=== PATIENT | male | born 1935 | race African-American/Black ===

== ENCOUNTER 2017-11-04 08:11 | Emergency (ER) | payer BC, MEDICARE ==
[~2017-11-04] VITALS: Ht 162.6 cm; Wt 62.7 kg
[2017-11-04 08:25] VITALS: Ht 162.6 cm; Wt 62.7 kg
[2017-11-04] MEDS ORDERED: TORADOL10 MG PO (10:28)
[2017-11-04 11:00] VITALS: BP 132/70
== END 2017-11-04 11:01 | disposition home or self-care (01) ==
LOC: D.ER 08:11
DX: M13.142 Monoarthritis, not elsewhere classified, left hand (principal)

== ENCOUNTER 2018-07-27 14:29 | Observation (INO) | payer BC ==
[~2018-07-27] VITALS: Ht 162.6 cm; Wt 64.0 kg
--- NOTE | ~2018-07-27 | HEMODYNAMI ---
PATIENT:GANESH BHATT MEDICAL RECORD: [id number] : 33 LOCATION:[facility] D.2104 ADMISSION DATE: 07/27/18 Generatedon:07/30/201810:38 Patient name: GANESH BHATT Patient #: [id number] SSN: : 1935 Date of study: 07/30/2018 Page: Of Hemodynamic Procedure Report Patient Data Patient Demographics Procedure consent was obtained First Name: GANESH Gender: Male Last Name: MILLER : 1935 Patient #: [id number] Age: 82 year(s) Race: Black Additional ID: [id number] Contact details [address]: [address] [place] [address] State: [place] City: [place] Zip code: [address] Admission Admission Data Admission Date: 07/27/2018 Admission Time: 16:41 Room #: D.2104 Procedure Procedure Types Cath Procedure Diagnostic Procedure LHC LHC w/Coronaries FFR/IVUS FFR Initial Intra-Coronary IVUS Initial Sedation Charges Moderate Sedation up to 15 minutes PCI Procedure Coronary Stent Coronary Stent Initial Procedure Description Procedure Date Procedure Date: 07/30/2018 Procedure Start Time: 10:06 Procedure End Time: 10:35 Procedure Staff Name Function John Bowens MD Performing Physician Heike Rogers RT Monitor Candice Crandall RT Scrub Anna Serra RN Nurse Procedure Data Cath Procedure Fluoroscopy Diagnostic fluoroscopy Total fluoroscopy Time: 7 time: 7 min min Diagnostic fluoroscopy Total fluoroscopy dose: dose: 1018 mGy 1018 mGy Contrast Material Contrast Material Type Amount (ml) Isovue 370 119 Entry Location Entry Primary Successful Side Size Upsize Upsize Entry Closure Levin ccessful Closure Location (Fr) 1 (Fr) 2 (Fr) Remarks Device Remarks Radial Right 6 Fr Mechanical artery Short Compression Femoral Right 5 Fr 6 Fr Exoseal artery Short Estimated blood loss: 5 ml Diagnostic catheters Device Type Used For End Catheter Placement DIAGNOSTIC [place] 110cm 5 Multi-vessel Fr catheter ([id number]) Angiography Procedure Complications No complications Procedure Medications Medication Administration Route Dosage 0.9% NaCl I.V. 100 ml/hr Oxygen etCO2 Nasal cannula 2 l/min Lidocaine 2% added to field 20 Heparin Flush Bag added to field 2 bags (1000units/500ml NS) Radial Cocktail added to field 1 syringe (Verapamil 2mg/Nitro 400mcg/Heparin 1500units) Versed I.V. 2 mg Fentanyl I.V. 50 mcg Fentanyl I.V. 50 mcg Heparin Bolus I.V. 4000 units Plavix P.O. 75 mg Hemodynamics Rest Heart Rate: 79 (bpm) Pressure Samples Time Site Value (mmHg) Purpose Heart Use Rate(bpm) 10:11 LV 93/-5,11 Snapshot 93 Snapshots Pre Cath Intra NCS Post Cath Vital Signs Time Heart Resp SPO2 etCO2 NIBP (mmHg) Rhythm Pain Sedation Rate (ipm) (%) (mmHg) Status Level (bpm) 9:52:06 95 13 100 18.7 202/129(166) NSR 0 (11) 10(A) , No pain 9:56:30 91 16 99 18 194/108(163) NSR 0 (11) 10(A) , No pain 10:00:52 87 16 100 33 176/99(141) NSR 0 (11) 10(A) , No pain 10:05:10 85 11 100 32.7 176/104(143) NSR 0 (11) 10(A) , No pain 10:09:28 93 11 99 40.2 149/89(124) NSR 0 (11) 9(A) , No pain 10:13:38 85 15 100 38.3 130/89(109) NSR 0 (11) 9(A) , No pain 10:18:41 91 18 100 26.3 158/93(111) NSR 0 (11) 9(A) , No pain 10:22:55 82 17 100 16.5 148/86(107) NSR 0 (11) 9(A) , No pain 10:27:03 81 10 100 33 160/91(118) NSR 0 (11) 9(A) , No pain 10:31:17 80 10 100 33 161/94(142) NSR 0 (11) 10(A) , No pain 10:35:29 79 13 100 0 163/106(134) NSR 0 (11) 10(A) , No pain Medications Time Medication Route Dose Verified Delivered Reason Not es Effectiveness by by 9:56:08 0.9% NaCl I.V. 100 John Anna used for ml/hr Kwan Serra business writer 9:56:14 Oxygen etCO2 2 l/min John Anna used for Nasal Kwan Serra procedure cannula RN 9:56:19 Lidocaine 2% added 20ml Johnraman Rizvirey for local to vial Kwan Bowens MD anesthetic field 9:56:25 Heparin Flush added 2 bags Johnraman Rizvirey used for Bag to Kwan Bowens MD procedure (1000units/500ml field NS) 9:56:31 Radial Cocktail added 1 Johnraman Rizvirey used for (Verapamil to syringe Kwan Bowens MD procedure 2mg/Nitro field 400mcg/Heparin 1500units) 10:00:06 Versed I.V. 2 mg John Rizvirey for sedation Kwan Bowens MD 10:00:16 Fentanyl I.V. 50 mcg John Anna for sedation Kwan Serra RN 10:06:34 Fentanyl I.V. 50 mcg John Anna for sedation Kwan Serra RN 10:17:34 Heparin Bolus I.V. 4000 John Anna for ra ified units Kwan Serra anticoagulation with Dr. CHANA Bowens 10:18:14 Plavix P.O. 75 mg John Gallagheryla for to be Kwan Serra antiplatelet given RN therapy after procedure when pt awake Procedure Log Time Note 9:30:30 Heike Rogers RT(R) sent for patient. Start room use. 9:49:10 Diagnostic Cath Status : Elective 9:49:31 Time tracking: Regular hours (M-F 7:00 - 5:00) 9:49:37 Plan of Care:Hemodynamics will remain stable., Cardiac rhythm will remain stable., Comfort level will be maintained., Respiratory function will remain adequate., Patient/ family verbilizes understanding of procedure., Procedure tolerated without complication., Recovers from procedure without complications.. 9:49:49 Patient received from Med II to CCL 2 Alert and oriented. Tansferred to table in Supine position. 9:49:50 Warm blankets applied, and vita hugger turned on for patient comfort. 9:49:51 Correct patient and procedure confirmed by team. 9:49:52 Signed procedure consent form obtained from patient. 9:49:53 ECG and BP/O2 sat monitors applied to patient. 9:49:54 Vital chart was started 9:49:55 Baseline sample Acquired. 9:49:59 Rhythm: sinus rhythm 9:50:00 Full Disclosure recording started 9:50:03 H&P Date Dictated: 07/30/2018 New H&P dictated by physician.. 9:50:04 Pre-procedure instructions explained to patient. 9:50:04 Pre-op teaching completed and patient verbalized understanding. 9:50:06 Family in patients room. 9:50:07 Patient NPO since Midnight. 9:50:09 Is the patient allergic to Iodine/contrast media? No. 9:50:10 Was the patient premedicated? No 9:56:08 0.9% NaCl 100 ml/hr I.V. was administered by Anna Serra RN; used for procedure; 9:56:14 Oxygen 2 l/min etCO2 Nasal cannula was administered by Anna Serra RN; used for procedure; 9:56:19 Lidocaine 2% 20ml vial added to field was administered by John Bowens MD; for local anesthetic; 9:56:25 Heparin Flush Bag (1000units/500ml NS) 2 bags added to field was administered by John Bowens MD; used for procedure; 9:56:31 Radial Cocktail (Verapamil 2mg/Nitro 400mcg/Heparin 1500units) 1 syringe added to field was administered by John Bowens MD; used for procedure; 9:59:00 Is patient on blood thinner?Yes 9:59:03 ACC The patient was administered the following blood thiners within the last 24 hours: ACCPlavix 9:59:05 Patient diabetic? No. 9:59:08 Previous problem with sedation/anesthesia? No ? 9:59:13 Snore? Yes 9:59:14 Sleep apnea? No 9:59:15 Deviated septum? No 9:59:16 Opens mouth fully? Yes 9:59:17 Sticks out tongue? Yes 9:59:22 Airway obstruction? No ? 9:59:28 Dentures? Yes implant 9:59:32 Pre procedure: right dorsailis pedis pulse 2+ Normal; easily identifiable; not easily obliterated 9:59:34 Pre procedure: left dorsailis pedis pulse 2+ Normal; easily identifiable; not easily obliterated 9:59:36 Patient pain scale 0/10 ?. 9:59:40 IV patent on arrival in left forearm with 0.9% NaCl at O. 9:59:42 Lab results completed and on chart. 9:59:47 Right Radial & Right Groin area was prepped with chlora-prep and draped in sterile fashion 9:59:48 Alarms reviewed by R. N. 9:59:48 Sharps counted by scrub and verified by R.N. 9:59:50 Physician arrived 9:59:50 --------ALL STOP TIME OUT------ 9:59:50 Final Timeout: patient, procedure, and site verified with staff and physician. All members of the team are in agreement. 9:59:52 Right Radial & Right Groin site verified by team. 9:59:56 Maximum allowable Isovue 370 dose 300ml. Physician notified. (300ml for normal creatinines. For patients with creatinine of 1.7 or higher multiply weight(kg) x 5 divided by creatinine.) 10:00:00 Fire Safety Assessment: A--An alcohol-based skin anteseptic being used preoperatively., C--Open oxygen or nitrous oxide is being used., D--An ESU, laser, or fiber-optic light is being used. 10:00:03 Physical assessment completed. ASA score P 2 - A patient with mild systemic disease as per John Bowens MD. 10:00:06 Versed 2 mg I.V. was administered by John Bowens MD; for sedation; 10:00:06 Sedation plan: IV Moderate Sedation Medication:Versed, Fentanyl 10:00:10 Use device set Radial Dx or PCI 10:00:12 ACIST Syringe (19485) opened to sterile field. 10:00:12 Medline Cath Pack ([id number]) opened to sterile field. 10:00:13 Bag Decanter (2002S) opened to sterile field. 10:00:13 DIAGNOSTIC WIRE .035 260cm J wire (555458) opened to sterile field. 10:00:14 ACIST Hand Control (00763) opened to sterile field. 10:00:14 ACIST Manifold (79679) opened to sterile field. 10:00:15 Tegaderm 4 x 4 (1626W) opened to sterile field. 10:00:15 MBrace Wrist Support (844064945) opened to sterile field. 10:00:16 Fentanyl 50 mcg I.V. was administered by Anna Serra RN; for sedation; 10:00:16 SHEATH 6FR Slender (60-6269) opened to sterile field. 10:06:34 Fentanyl 50 mcg I.V. was administered by Anna Serra RN; for sedation; 10:06:54 Procedure started. 10:06:59 Local anesthetic to right radial artery with Lidocaine 2% by John Bowens MD.INITIAL ACCESS ONLY 10:07:55 A 6 Fr Short sheath was inserted into the Right Radial artery 10:08:01 A DIAGNOSTIC [place] 110cm 5 Fr catheter (633941) was advanced over the wire and used for Multi-vessel Angiography. 10:09:46 Catheter removed. unable to cannulate vessel. 10:09:55 Local anesthetic to right femoral artery with Lidocaine 2% by John Bowens MD.ADDITIONAL ACCESS 10:10:08 SHEATH 5FR [place] (FRD103) opened to sterile field. 10:10:09 DIAGNOSTIC Multipack 5Fr catheter set (CY9108) opened to sterile field. 10:10:33 A 5 Fr sheath was inserted into the Right Femoral artery 10:11:15 5 Fr pigtail guide catheter was inserted over the wire 10:11:31 LV hemodynamics recorded. 10:11:32 LV gram done using GONZALEZ 10:11:35 Injector settings: Ml/sec: 5, Volume: 15, 10:11:41 EF : 60 % 10:12:00 Catheter removed. 10:12:16 LCA angiography performed. 10:12:18 Injector settings: Ml/sec: 3, Volume: 6, 10:14:28 Catheter removed. 10:14:44 5 Fr 3drc guide catheter was inserted over the wire 10:14:55 RCA angiography performed. 10:14:57 Injector settings: Ml/sec: 3, Volume: 6, 10:15:51 Catheter removed. 10:15:52 Proceeding to intervention. 10:16:34 SHEATH 6FR [place] (YTH425) opened to sterile field. 10:16:35 GUIDE 6FR XB 3.5 catheter ([id number]) opened to sterile field. 10:16:36 [place] Verrata Plus pressure wire (68736L) opened to sterile field. 10:16:36 INFLATOR Merit BasixCompak (HL7622) opened to sterile field. 10:16:56 Sheath upsized to a 6 Fr Short. 10:17:08 6 Fr xb 3.5 guide catheter was inserted over the wire 10:17:34 Heparin Bolus 4000 units I.V. was administered by Anna Serra RN; for anticoagulation; verified with Dr. Bowens 10:18:14 Plavix 75 mg P.O. was administered by Anna Serra RN; for antiplatelet therapy; to be given after procedure when pt awake 10:18:29 CHOICE PT Extra Support 182cm wire ([id number]) opened to sterile field. 10:18:39 [facility] ept wire advanced. 10:20:42 Wire advanced across lesion. 10:21:59 Place stent Inflation Number: 1 A ROBERTH RX 4.0 x 15 stent ([id number]) was prepped and advanced across the Prox CX. The stent was deployed at 11 DAVIDE for 0:10 (min:sec). 10:22:21 Inflation number: 2 The stent balloon was then re-inflated across the Prox CX to 13 DAVIDE for 0:10 (min:sec). 10:22:56 Stent catheter was removed intact over wire. 10:22:56 Wire removed. 10:22:58 Guide catheter removed. 10:23:08 GUIDE 6FR EBU 3.0 catheter ([id number]) opened to sterile field. 10:23:17 6 Fr ebu 3 guide catheter was inserted over the wire 10:23:40 FFR/IFR wire advanced. 10:26:45 lad lesion measured at 0.97 with IFR 10:27:08 [place]ag[place] IVUS Catheter (59978S) opened to sterile field. 10:27:56 IFR wire removed; proceding to IVUS 10:28:31 IVUS catheter advanced over wire. 10:28:33 IVUS pass to LAD lesion performed. 10:30:19 IVUS catheter removed over wire. 10:30:42 Wire removed. 10:30:42 Guide catheter removed. 10:30:48 EXOSEAL 6Fr (EX600) opened to sterile field. 10:31:04 Sheath removed intact; hemostasis achieved with Exoseal to the Right Femoral artery. 10:31:16 Sheath removed intact; hemostasis achieved with Mechanical Compression to the Right Radial artery. 10::31 Procedure ended.(Physican Out) 10:32:41 Fluoroscopy time 07.00 minutes. 10:32:45 Fluoroscopy dose: 1018 mGy 10:32:45 Flurop Dose total: 1018 10:34:05 Contrast amount:Isovue 370 119ml. 10:34:06 Sharps counted by scrub and verified by R.N. 10:34:09 TR band inflated with 10cc of air. 10:34:10 Insertion/operative site no bleeding no hematoma. 10:34:19 Post right femoral artery:stable 10:34:21 Post Procedure Pulses reassessed and unchanged 10:34:25 Post procedure rhythm: unchanged. 10:34:28 Estimated blood loss: 5 ml 10:34:29 Post procedure instruction explained to patient.Patient verbalizes understanding. 10:34:30 Patient needs reinforcement of post procedure teaching. 10:35:14 Procedure type changed to Cath procedure, Diagnostic procedure, LHC, LHC w/Coronaries, FFR/IVUS, FFR Initial, Intra-Coronary IVUS Initial, Sedation Charges, Moderate Sedation up to 15 minutes, PCI procedure, Coronary Stent, Coronary Stent Initial 10:35:15 Procedure and supply charges have been captured, reviewed, submitted and are correct. 10:35:20 Procedure Complication : No complications 10:35:24 Vital chart was stopped 10:35:24 See physician's report for complete and final results. 10:35:28 Report given to [facility]. 10:35:31 Patient transfered to [facility] with Stretcher. 10:35:33 Procedure ended. 10:35:33 Full Disclosure recording stopped 10:35:46 ACC-PCI Only Patient was given prescriptions, or instructed by John Bowens MD to start/continue the following medications upon discharge: Plavix 10:35:47 End room use (Document Last) Intervention Summary Intervention Notes Time ActionType Lesion and Equipment Used Action# Pressure Duration Attributes 10:21:59 Place stent Prox CX ROBERTH RX 4.0 x 1 11 00:10 15 stent ([id number]) 10:22:21 Reinflate Prox CX ROBERTH RX 4.0 x 2 13 00:10 stent 15 stent balloon ([id number]) Device Usage Item Name Manufacture Quantity Catalog Number Hospital Part Current Minimal Lot# / Charge Number Stock Stock Serial# Code ACIST Syringe Acist 1 81690 843805 114335 [id number] 20 (83678) Medical Systems Inc Medline Cath Medline 1 [id number] 653381 91411 887505 5 Pack ([id number]) Bag Decanter Microtek 1 2001S 133492 32096 685318 5 (2001S) Medical Inc. DIAGNOSTIC [place] 1 339928 491906 291245 779225 30 WIRE .035 260cm J wire (865883) ACIST Hand Acist 1 61119 836202 555869 405291 5 Control Medical (74450) Systems Inc ACIST Manifold Acist 1 56934 648199 149098 178855 5 (93206) Medical Systems Inc Tegaderm 4 x 4 3M 1 1626W 907290 933450 704693 5 (1626W) MBrace Wrist Advanced 1 140-0250-00 886866 03781 921537 5 Support Vascular (339442687) Dynamics SHEATH 6FR Terumo 1 [id number] 647508 761551 723052 5 Slender (80-1060) DIAGNOSTIC Terumo 1 40-5013 187797 997428 913604 5 [place] 110cm 5 Fr catheter (893262) SHEATH 5FR Terumo 1 OUH020 393875 883003 909664 5 [place] (MRU016) DIAGNOSTIC Cardinal 1 DF6912 160518 74712 767019 30 Multipack 5Fr Health catheter set (MA6901) SHEATH 6FR Terumo 1 AHQ970 341485 340104 975899 40 [place] (UOT078) GUIDE 6FR XB Cardinal 1 04447276 314318 199831 552588 2 3.5 catheter Health (82511498) [place] 1 36925J 732389 205911360 293192 5 Verrata Plus pressure wire (36378P) INFLATOR Merit Merit 1 UD1800 659081 866186 529130 15 [facility]ware[facility] HospitalM[facility] Bell Medical (OJ3315) CHOICE PT [place] 1 [id number] 693493 703048 236945 5 Extra Support Scientific 182cm wire ([id number]) ROBERTH RX 4.0 x Medtronic 1 [id number] 775396 6980335 224504 5 [id number] 15 stent ([id number]) GUIDE 6FR EBU Medtronic 1 [id number] 078314 78003 114908 0 3.0 catheter ([id number]) [place] 1 78965Q 564358 233497 548747 8 [place] IVUS Catheter (95449X) EXOSEAL 6Fr Cardinal 1 EX600 264964 951247 238503 10 (EX600) Health Signature Audit [place] Stage Time Signature Unsigned Intra-Procedure 07/30/2018 Heike Rogers 10:37:55 AM RT(R) Signatures Monitor : Heike Rogers RT Signature : Date : Time : [address] [place] [address]
--- NOTE | ~2018-07-27 | CN ---
PATIENT NAME:GANESH SOLIS MEDICAL RECORD: [id number] : 33 LOCATION:. D.2104 ADMIT DATE: 07/27/18 ACCOUNT: [id number] CONSULTING PHYSICIAN: PHILLIP CHAPMAN MD REFERRING PHYSICIAN: YOMI HICKS MD DATE OF CONSULTATION: 07/28/2018 DIAGNOSES: 1. Syncope. 2. Hypertension. 3. Hyperlipidemia. HISTORY OF PRESENT ILLNESS: Mr. Solis presents after an episode of syncope. Prior to the syncope he became very diaphoretic. He did have nausea, vomiting but no chest pain and then had syncope. His telemetry has been normal here. His EKG is overall normal. His troponin is normal. He had an echocardiogram, this was overall normal with some mitral regurgitation and tricuspid regurgitation but normal LV function, normal wall motion. He has had no further episodes of syncope or near syncope since he has been in this. Cardiac risk factors are hypertension and hyperlipidemia. PHYSICAL EXAMINATION: GENERAL APPEARANCE: Well nourished, well developed, appears stated age. Level of distress, comfortable. PSYCHIATRIC: Mental status, alert, normal affect. Orientation, oriented to time, place and person. EYES: Lids and conjunctiva, noninjected. No discharge, no pallor. ENT: Lips, teeth, gums, normal dentition. Oropharynx, no cyanosis, no pallor. NECK: Carotid arteries, bilateral normal upstroke, no bruits, no thrills. JUGULAR VEINS: No jugular venous pressure or distention. CERVICAL LYMPH NODES: Nontender, nonenlarged. THYROID: Not enlarged. Nontender. No nodules. LUNGS: Respiratory effort, unlabored. CHEST: Normal curvature. No thoracic deformity. No chest wall tenderness. Percussion, resonant. Auscultation, clear. No wheezes, no rales, no rhonchi. CARDIOVASCULAR: Precordial exam, nondisplaced. No heaves or pericardial thrills. Rate and rhythm, regular. Heart sounds, normal S1, normal S2. No S3, no gallop, no rub. Systolic murmur, not heard. Diastolic murmur, not heard. EXTREMITIES: No cyanosis, no edema. Peripheral pulses, full and equal in all extremities, except as noted. No bruits appreciated. ABDOMEN: Soft, nondistended. Normal aorta. No bruit. Nontender. No masses. Liver, nontender, no hepatomegaly. Spleen, nontender, no splenomegaly. MUSCULOSKELETAL: No joint tenderness. No joint swelling. No erythema. NEUROLOGICAL: Normal gait, normal strength, normal tone. SKIN: Warm and dry. OVERALL IMPRESSION: Syncope, concerning part from a cardiac standpoint as he became diaphoretic with nausea prior to the syncope. We will risk stratify with stress testing and Cardiolite imaging. Further care depends upon findings of the stress test. TRANSINT:[id number] Voice Confirmation ID: [id number] DOCUMENT ID: [id number] CONSULT REPORT [id number] GANESH SOLIS JEFFREY MD CC: [id number] DICTATION DATE: 07/28/18 1205 MANAGER GARAGE: 07/28/182043 ADM IN [facility] [address] [id number]
--- NOTE | ~2018-07-27 | ST ---
PATIENT:GANESH BHATT MEDICAL RECORD: [id number] SEX: M LOCATION:D. D.210 ORDER #: ADMISSION DATE: 07/27/18 AGE OF PATIENT: 82 REFERRING PHYSICIAN: INTERPRETING PHYSICIAN: PHILLIP CHAPMAN MD DATE OF SERVICE: 07/29/2018 PROCEDURE: Nuclear stress test. The patient was exercised on standard Lexiscan protocol with 25 mCi of sestamibi injected at peak stress. Rest images were done previously with 8 mCi. FINDINGS: Gated SPECT reveals preserved ejection fraction of 55% with good wall motioning and thickening and brightening throughout all segments. SPECT imaging: Cardiolite was used as myocardial perfusion agent. There is reversibility inferiorly. This includes basal, mid, apical, inferior segments. The degree of reversibility is mild. The amount of myocardium involved is mild to moderate. OVERALL IMPRESSION: 1. This is an abnormal nuclear stress test. Reversible ischemia inferiorly. 2. Gated SPECT reveals preserved ejection fraction of greater than 50%. In this patient who presents with syncope and anginal symptomatology, the current scan does suggest presence of hemodynamically significant coronary artery disease. We will proceed with coronary angiography as a followup study. TRANSINT:[id number] Voice Confirmation ID: [id number] DOCUMENT ID: [id number] PHILLIP CHAPMAN MD CC: [id number] DICTATION DATE: 07/30/18 1040 PURCHASING SUPERVISOR: 07/31/18 0025 DIS IN 07/30/18 [facility] [address] [id number]
--- NOTE | ~2018-07-27 | OP ---
PATIENT NAME: GANESH BHATT MEDICAL RECORD: [id number] :33 LOCATION:D.M2 D.2104 ADMISSION DATE:07/27/18 SURGEON: PHILLIP CHAPMAN MD DATE OF OPERATION: 07/30/2018 DATE OF SERVICE: 07/30/2018 PROCEDURES: 1. PTCA stent of left circumflex. 2. IVUS of LAD. 3. IFR of LAD. 4. Left heart catheterization. 5. Selective coronary angiography. 6. Left ventriculogram. INDICATION: Syncope and coronary artery disease. PROCEDURE IN DETAIL: After informed consent was obtained and after a detailed description of the risks, benefits as well as alternative therapies, the patient elected to proceed with angiogram and angioplasty. The right femoral area was prepped and draped in normal sterile fashion. Right femoral artery was cannulated via modified Seldinger technique with placement of 6-Syriac sheath. All catheters exchanged through this sheath. FINDINGS: Left ventriculogram was performed in standard 30-degree GONZALEZ view, reveals good cardiac wall motion throughout all segments. Overall ejection fraction estimated at 60%. SELECTIVE CORONARY ANGIOGRAPHY: 1. Left main is with no significant angiographic disease. 2. Left circumflex has 90% stenosis proximally. 3. Left anterior descending has 63% stenosis proximally by intravascular ultrasound; however, IFR was normal. 4. Right coronary has moderate irregularities, but no discrete flow-limiting stenosis. PTCA STENT OF THE LEFT CIRCUMFLEX: The stent used was a 4.0 x 15-mm [place] taken to 15 atmospheres. Result was 0% residual stenosis. OVERALL IMPRESSION: Successful percutaneous transluminal coronary angioplasty stent of the left circumflex going from 90% initial stenosis to 0% residual. TRANSINT:[id number] Voice Confirmation ID: [id number] DOCUMENT ID: [id number] PHILLIP CHAPMAN MD CC: [id number] DICTATION DATE: 07/30/18 1037 ARM REST BUILDER: 07/30/18 1108 ADM [address] [place] [address]
--- NOTE | ~2018-07-27 | EC ---
PATIENT:GANESH BHATT DATE OF SERVICE: 07/27/18 SEX: M MEDICAL RECORD: [id number] DATE OF : [birth year] LOCATION:D.M2 D.210 AGE OF PATIENT: 82 ADMISSION DATE: 07/27/18 REFERRING PHYSICIAN: INTERPRETING PHYSICIAN: PHILLIP BOWENS MD ECHOCARDIOGRAM REPORT ECHO CHARGES 4 ECHO COMPLETE Date: 07/27/18 CLINICAL DIAGNOSIS: SYNCOPE ECHOCARDIOGRAPHIC MEASUREMENTS (adult normal given) AC root (d.<3.7cm) 2.8 cm LV Septum d (<1.2 cm> 0.9 cm Valve Excursion 1.6 cm LV Septum (systole) 1.6 cm Left Atria (s.<4.0cm> 3.4 cm LVPW d(<1.2cm) 1.2 cm RV (d.<2.3cm) 3.1 cm LVPW (sytole) 1.7 cm LV diastole(<5.6CM) 4.7 cm MV E-F(>70mm/sec) cm LV systole 2.6 cm LVOT Diameter 1.8 cm MV exc.(>10mm) cm Est.ejection fraction (50-75%) % DOPPLER: LVIT cm/sec A 82.0 cm/sec E 91.0 cm/sec LA cm/sec RVSP 36.0 mmHg LVOT 83.0 cm/sec AOP1/2T m/s Asc. Ao 132 cm/sec RVOT 40.0 cm/sec RA cm/sec PA 102 cm/sec AV Gradient Peak 7.0 mmHg AV Mean 2.5 mmHg AV Area 1.6 cm MV Gradient Peak 4.2 mmHg MV Mean 1.6 mmHg MV Area cm COMMENTS: Textile Machine Operator: Chantal [place] Director Child: 1 Dr. Bowens TAPE# PACS Pericardial Effusion N DATE OF SERVICE: 07/27/2018 FINDINGS: 1. Left ventricular chamber size is within normal limits. Left ventricular systolic function is normal. Overall ejection fraction is estimated at 55%. 2. Left atrium, right atrium, and right ventricular chamber sizes are within normal limit. 3. Valvular structures have normal structure and motion. 4. Doppler interrogation reveals mild mitral regurgitation and moderate tricuspid regurgitation. No other valvular insufficiency or stenosis. ECHOCARDIOGRAM REPORT [id number] GANESH BHATT 5. No evidence of pericardial effusion or left ventricular thrombus. Pulmonary systolic pressure is normal, estimated at 36 mmHg. 6. No evidence of pericardial effusion or left ventricular thrombus. TRANSINT:[id number] Voice Confirmation ID: [id number] DOCUMENT ID: [id number] PHILLIP BOWENS MD CC: [id number] DICTATION DATE: 07/28/181034 DENTURE WAXER: 07/28/18 181 ADM IN [facility] [address] [place] [address]
[~2018-07-27 14:29] MED LIST: TORADOL10 MG PO
[2018-07-27] MEDS ORDERED: RANITIDINE HCL150 M1 PO (14:39)
[2018-07-27] MEDS ORDERED: COZAAR50 MG PO (14:39)
[2018-07-27] MEDS ORDERED: ZOCOR40 MG PO (14:40)
[2018-07-27] MEDS ORDERED: REVATIO20 MG PO (14:40)
[2018-07-27 15:27] LABS: BASOPHILS 0.1 % (0-2); EOSINOPHILS 0.1 % (0-7); HEMATOCRIT 39.2 % (42.0-54.0); IMMATURE GRANULOCYTES 0.1 % (0-5); LYMPHOCYTES 16.9 % (15-50); MCH 27.4 pg (26.0-34.0); MCHC 33.2 g/dL (31.0-37.0); MCV 82.5 fL (80.0-100.0); MEAN PLATELET VOLUME 10.2 fL (7.4-10.4); MONOCYTES 3.9 % (2-11); NEUTROPHILS 78.9 % (40-80); PLATELET COUNT 190 10x3/uL (130-400); RBC 4.75 10x6/uL (4.20-6.10); RDW 12.6 % (11.5-14.5); WBC 7.3 10x3/uL (4.8-10.8)
[2018-07-27 15:35] VITALS: BP 127/70
[2018-07-27 15:45] LABS: ALBUMIN 3.8 g/dL (3.4-5.0); ALKALINE PHOSPHATASE 44 U/L (46-116); ALT (SGPT) 32 U/L (10-68); BILIRUBIN - TOTAL 0.67 mg/dL (0.2-1.3); CALC OSMOLALITY 271 mosm/kg (275-300); CALCIUM 9.5 mg/dL (8.5-10.1); CARBON DIOXIDE 29.4 mmol/L (21.0-32.0); CHLORIDE - SERUM 100 mmol/L (98-107); CREATININE - SERUM 1.2 mg/dL (0.6-1.3); GLUCOSE 137 mg/dL (74-106); POTASSIUM - SERUM 4.2 mmol/L (3.5-5.1); PROTEIN - SERUM 7.5 g/dL (6.4-8.2); SODIUM 135 mmol/L (136-145); UREA NITROGEN 13 mg/dL (7-18); eGFR NON AFRICAN AMERICAN 61 mL/min (90-120)
[2018-07-27 15:47] LABS: APTT 25.6 SECONDS (22.8-39.4); INR 1.09 (0.85-1.17); PROTIME 13.6 SECONDS (11.6-15.0)
[2018-07-27 15:56] LABS: CKMB 7.7 U/L (0.0-3.6); CREATINE KINASE 520 UL (21-232)
[2018-07-27 15:57] LABS: TROPONIN-I < 0.017 ng/mL (0.000-0.060)
[2018-07-27 16:09] LABS: APPEARANCE CLEAR (CLEAR); BILIRUBIN NEGATIVE (NEGATIVE); COLOR YELLOW (YELLOW); GLUCOSE NEGATIVE (NEGATIVE); KETONE NEGATIVE (NEGATIVE); NITRITE NEGATIVE (NEGATIVE); PROTEIN NEGATIVE (NEGATIVE); SPECIFIC GRAVITY 1.005 (1.005-1.020); UROBILINOGEN NORMAL (NORMAL)
[2018-07-27 16:15] VITALS: BP 126/67
[2018-07-27 17:53] VITALS: BMI 22.0
[2018-07-27 19:35] VITALS: BP 129/60
[2018-07-27 21:47] LABS: CREATINE KINASE 485 UL (21-232)
[2018-07-27 21:48] LABS: TROPONIN-I < 0.017 ng/mL (0.000-0.060)
[2018-07-28] VITALS: BP 151/74
[2018-07-28 02:18] LABS: BASOPHILS 0.2 % (0-2); EOSINOPHILS 0.9 % (0-7); HEMOGLOBIN 11.6 g/dL (13.5-17.5); LYMPHOCYTES 31.8 % (15-50); MCH 27.2 pg (26.0-34.0); MCHC 33.1 g/dL (31.0-37.0); MCV 82.2 fL (80.0-100.0); MEAN PLATELET VOLUME 9.9 fL (7.4-10.4); NEUTROPHILS 60.1 % (40-80); RBC 4.26 10x6/uL (4.20-6.10); RDW 12.9 % (11.5-14.5); WBC 5.6 10x3/uL (4.8-10.8)
[2018-07-28 02:19] LABS: PLATELET COUNT 139 10x3/uL (130-400)
[2018-07-28 02:49] LABS: ALKALINE PHOSPHATASE 38 U/L (46-116); ALT (SGPT) 31 U/L (10-68); BILIRUBIN - TOTAL 0.32 mg/dL (0.2-1.3); CALC OSMOLALITY 274 mosm/kg (275-300); CALCIUM 8.5 mg/dL (8.5-10.1); CARBON DIOXIDE 28.4 mmol/L (21.0-32.0); CHLORIDE - SERUM 107 mmol/L (98-107); CKMB 5.4 U/L (0.0-3.6); CREATINE KINASE 439 UL (21-232); GLUCOSE 105 mg/dL (74-106); POTASSIUM - SERUM 3.6 mmol/L (3.5-5.1); SODIUM 138 mmol/L (136-145); TROPONIN-I < 0.017 ng/mL (0.000-0.060); UREA NITROGEN 10 mg/dL (7-18)
[2018-07-28 02:52] LABS: CREATININE - SERUM 0.8 mg/dL (0.6-1.3)
[2018-07-28 02:53] LABS: eGFR NON AFRICAN AMERICAN > 90 mL/min (90-120)
[2018-07-28 04:00] VITALS: BP 131/77
[2018-07-28 08:55] LABS: CKMB 5.2 U/L (0.0-3.6); CREATINE KINASE 457 UL (21-232)
[2018-07-28 08:56] LABS: TROPONIN-I < 0.017 ng/mL (0.000-0.060)
[2018-07-28 09:25] VITALS: BP 132/81
--- NOTE | 2018-07-28 10:46 | MORECARE ---
CASE MANAGEMENT DISCHARGE SUMMARY PATIENT: GANESH BHATT UNIT: [id number] ADM DATE: 07/27/18 AGE: 82 : 34 SEX: M ROOM/BED: D.2104 AUTHOR: MICHELLE SUE PHYSICIAN: REFERRING PHYSICIAN: YOMI HCIKS MD DATE OF SERVICE: 07/28/18 Discharge Plan Patient Name: AGNESH BHATT [facility] [facility] 1935 Planned Disposition: Home Anticipated Discharge Date: Discharge Date: Expected LOS: Initial Reviewer: [email or web address] Initial Review Date: 07/28/2018 Generated: 07/28/18 11:46 am DCPIA - Discharge Planning Initial Assessment Updated by [email or web address]: Eleanor Lopez on 07/28/18 10:46 am * Is the patient Alert and Oriented? Yes * How many steps to enter\exit or inside your home? na * PCP Dr James * Pharmacy [facility] on [facility] * Preadmission Environment Home with Family * ADLs Independent * Equipment None * List name and contact numbers for known caregivers / representatives who currently or will assist patient after discharge: Renae [phone] * Verbal permission to speak to the caregivers and representatives has been obtained from the patient. N/A * Community resources currently utilized None * Additional services required to return to the preadmission environment? No * Can the patient safely return to the preadmission environment? Yes * Has this patient been hospitalized within the prior 30 days at any hospital? No Patient Name: GANESH BHATT Page 38193 at 1046 All edits/amendments must be made on the electronic document DICTATION DATE: 07/28/18 1045 CHAIN TESTING MACHINE OPERATOR: PASQUALE 07/28/18 1045 RPT#: [id number] DC DATE: STATUS: ADM IN [facility] [address] [place] [address] END OF REPORT
--- NOTE | 2018-07-28 10:53 | MORECARE ---
CASE MANAGEMENT DISCHARGE SUMMARY PATIENT: GANESH BHATT UNIT: [id number] ADM DATE: 07/27/18 AGE: 82 : 34 SEX: M ROOM/BED: D.2104 AUTHOR: LINETTE,DOC PHYSICIAN: REFERRING PHYSICIAN: YOMI HICKS MD DATE OF SERVICE: 07/28/18 Discharge Plan Patient Name: GANESH BHATT Facility: [facility]:[place] : 1935 Planned Disposition: Home Anticipated Discharge Date: Discharge Date: Expected LOS: Initial Reviewer: [email or web address] Initial Review Date: 07/28/2018 Generated: 07/28/18 11:53 am Comments DCP- Discharge Planning Updated by [email or web address]: Eleanor Lopez on 07/28/18 9:[address] Patient Name: GANESH BHATT Admission Status: ER Accout number: [id number] Admission Date: 07-27-2018 : 1935 Admission Diagnosis: Attending: YOMI HICKS Current LOS: 1 Anticipated DC Date: Planned Disposition: Home Primary Insurance: [employer] FEP Discharge Planning Comments: CM met with patient about discharge planning. CM explained CM role and verbal consent was given to do dc assessment. CM educated on Home Health, DME and rehab services that are available. Patient states his discharge plan is to return to home with . States home environment is safe for discharge. Denies any discharge planning needs at this time. States will drive him home upon discharge. CM will continue to follow and assist as needed with discharge planning needs. Oil Rag Washer: Eleanor Lopez DCPIA - Discharge Planning Initial Assessment Updated by [email or web address]: Eleanor Lopez on 07/28/18 10:46 am * Is the patient Alert and Oriented? Yes * How many steps to enter\exit or inside your home? na * PCP Dr James * Pharmacy [facility] on [facility] * Preadmission Environment Home with Family * ADLs Independent * Equipment None * List name and contact numbers for known caregivers / representatives who currently or will assist patient after discharge: tiffanie Macdonald [phone] * Verbal permission to speak to the caregivers and representatives has been obtained from the patient. N/A * Community resources currently utilized None * Additional services required to return to the preadmission environment? No * Can the patient safely return to the preadmission environment? Yes * Has this patient been hospitalized within the prior 30 days at any hospital? No Last DP export: 07/28/18 9:46 am Patient Name: GANESH BHATT Page 50749 at 1053 All edits/amendments must be made on the electronic document DICTATION DATE: 07/28/181052 BELL ATTENDANT: PASQUALE 07/28/18 105 RPT#: [id number] DC DATE: STATUS: ADM IN [facility] [address] [place] [address] END OF REPORT
[2018-07-28 14:03] VITALS: BP 130/65
[2018-07-28 20:00] VITALS: BP 145/76
[2018-07-29] VITALS: BP 151/85
[2018-07-29 04:00] VITALS: BP 155/82
[2018-07-29 05:41] LABS: BASOPHILS 0.2 % (0-2); HEMATOCRIT 35.9 % (42.0-54.0); HEMOGLOBIN 11.7 g/dL (13.5-17.5); LYMPHOCYTES 25.5 % (15-50); MCHC 32.6 g/dL (31.0-37.0); MCV 82.9 fL (80.0-100.0); MEAN PLATELET VOLUME 10.7 fL (7.4-10.4); MONOCYTES 6.8 % (2-11); NEUTROPHILS 66.5 % (40-80); RBC 4.33 10x6/uL (4.20-6.10); RDW 12.8 % (11.5-14.5); WBC 5.9 10x3/uL (4.8-10.8)
[2018-07-29 05:46] LABS: PLATELET COUNT 174 10x3/uL (130-400)
[2018-07-29 06:11] LABS: ALKALINE PHOSPHATASE 36 U/L (46-116); ALT (SGPT) 27 U/L (10-68); CALC OSMOLALITY 280 mosm/kg (275-300); CARBON DIOXIDE 25.2 mmol/L (21.0-32.0); CHLORIDE - SERUM 108 mmol/L (98-107); CREATININE - SERUM 0.9 mg/dL (0.6-1.3); GLUCOSE 85 mg/dL (74-106); POTASSIUM - SERUM 3.8 mmol/L (3.5-5.1); PROTEIN - SERUM 6.2 g/dL (6.4-8.2); SODIUM 142 mmol/L (136-145); UREA NITROGEN 9 mg/dL (7-18); eGFR NON AFRICAN AMERICAN 85 mL/min (90-120)
[2018-07-29 12:36] VITALS: BP 173/92
[2018-07-29 13:09] VITALS: Ht 162.6 cm; Wt 64.0 kg
[2018-07-29 16:43] VITALS: BP 157/69
[2018-07-29 20:00] VITALS: BP 155/81
[2018-07-30] VITALS: BP 161/81
[2018-07-30 04:20] VITALS: BP 152/95
[2018-07-30 04:49] LABS: BASOPHILS 0.2 % (0-2); EOSINOPHILS 1.3 % (0-7); HEMATOCRIT 35.1 % (42.0-54.0); HEMOGLOBIN 11.5 g/dL (13.5-17.5); IMMATURE GRANULOCYTES 0.2 % (0-5); LYMPHOCYTES 28.7 % (15-50); MCH 26.7 pg (26.0-34.0); MCHC 32.8 g/dL (31.0-37.0); MCV 81.6 fL (80.0-100.0); MEAN PLATELET VOLUME 10.5 fL (7.4-10.4); MONOCYTES 7.5 % (2-11); NEUTROPHILS 62.1 % (40-80); PLATELET COUNT 169 10x3/uL (130-400); RDW 12.6 % (11.5-14.5); WBC 5.2 10x3/uL (4.8-10.8)
[2018-07-30 05:20] LABS: ALKALINE PHOSPHATASE 37 U/L (46-116); ALT (SGPT) 27 U/L (10-68); BILIRUBIN - TOTAL 0.71 mg/dL (0.2-1.3); CALC OSMOLALITY 276 mosm/kg (275-300); CARBON DIOXIDE 24.7 mmol/L (21.0-32.0); CHLORIDE - SERUM 107 mmol/L (98-107); CREATININE - SERUM 0.9 mg/dL (0.6-1.3); GLUCOSE 86 mg/dL (74-106); POTASSIUM - SERUM 3.6 mmol/L (3.5-5.1); PROTEIN - SERUM 6.1 g/dL (6.4-8.2); SODIUM 140 mmol/L (136-145); UREA NITROGEN 11 mg/dL (7-18); eGFR NON AFRICAN AMERICAN 85 mL/min (90-120)
[2018-07-30 09:16] VITALS: BP 147/82
[2018-07-30 09:21] VITALS: BP 145/83; BP 155/83
[2018-07-30] MEDS ORDERED: PLAVIX75 MG PO (14:24)
[2018-07-30] MEDS ORDERED: ASPIRIN81 MG PO (14:25)
--- NOTE | 2018-07-30 15:09 | MORECARE ---
CASE MANAGEMENT DISCHARGE SUMMARY PATIENT: GANESH BHATT UNIT: [id number] ADM DATE: 07/27/18 AGE: 82 : 34 SEX: M ROOM/BED: D.2104 AUTHOR: LINETTE,DOC PHYSICIAN: REFERRING PHYSICIAN: YOMI HICKS MD DATE OF SERVICE: 07/30/18 Discharge Plan Patient Name: GANESH BHATT Facility: [facility]:[place] : 1935 Planned Disposition: Home Anticipated Discharge Date: 07/30/18 Discharge Date: Expected LOS: 3 Initial Reviewer: [email or web address] Initial Review Date: 07/28/2018 Generated: 07/30/18 4:08 pm DCP- Discharge Planning Updated by [email or web address]: Eleanor Lopez on 07/28/18 9:[address] Patient Name: GANESH BHATT Admission Status: ER Accout number: [id number] Admission Date: 07-27-2018 : 1935 Admission Diagnosis: Attending: YOMI HICKS Current LOS: 1 Anticipated DC Date: Planned Disposition: Home Primary Insurance: [employer] [facility] Discharge Planning Comments: CM met with patient about discharge planning. CM explained CM role and verbal consent was given to do dc assessment. CM educated on Home Health, DME and rehab services that are available. Patient states his discharge plan is to return to home with . States home environment is safe for discharge. Denies any discharge planning needs at this time. States will drive him home upon discharge. CM will continue to follow and assist as needed with discharge planning needs. Code And Test Clerk: Eleanor Lopez DCPIA - Discharge Planning Initial Assessment Updated by [email or web address]: Eleanor Lopez on 07/28/18 10:46 am * Is the patient Alert and Oriented? Yes * How many steps to enter\exit or inside your home? na * PCP Dr James * Pharmacy [facility] on [facility] * Preadmission Environment Home with Family * ADLs Independent * Equipment None * List name and contact numbers for known caregivers / representatives who currently or will assist patient after discharge: tiffanie Macdonald [phone] * Verbal permission to speak to the caregivers and representatives has been obtained from the patient. N/A * Community resources currently utilized None * Additional services required to return to the preadmission environment? No * Can the patient safely return to the preadmission environment? Yes * Has this patient been hospitalized within the prior 30 days at any hospital? No Last DP export: 07/28/18 9:53 am Patient Name: GANESH BHATT Page [phone] at 1509 All edits/amendments must be made on the electronic document DICTATION DATE: 07/30/181507 GAS PIT WORKER: PASQUALE 07/30/181507 RPT#: [id number] DC DATE: STATUS: ADM IN [facility] [address] [place] [address] END OF REPORT
== END 2018-07-30 16:24 | disposition home or self-care (01) ==
LOC: D.ER 14:29 → D.M2 16:41 → D.EDHOLD 16:41 → OBSVTIME 16:42 → D.M2 17:21
PROVIDERS: Family Medicine; ADMIT Family Medicine; ATTEND Family Medicine
DX: I25.10 Atherosclerotic heart disease of native coronary artery without angina pectoris (principal); R55 Syncope and collapse; I10 Essential (primary) hypertension; E78.5 Hyperlipidemia, unspecified; K21.9 Gastro-esophageal reflux disease without esophagitis; D64.9 Anemia, unspecified; W19.XXXA Unspecified fall, initial encounter; I95.9 Hypotension, unspecified; R42 Dizziness and giddiness; R61 Generalized hyperhidrosis

== ENCOUNTER → 2018-10-01 10:51 | Outpatient (CLI) | payer BC ==
[2018-07-29 13:09] VITALS: BMI 24.2
[~2018-10-01 10:51] MED LIST changes: +ASPIRIN81 MG PO; +COZAAR50 MG PO; +PLAVIX75 MG PO; +RANITIDINE HCL150 M1 PO; +REVATIO20 MG PO; +ZOCOR40 MG PO
== END | disposition home or self-care (01) ==
LOC: D.CT 10:30
PROVIDERS: ATTEND Nurse Practitioner Adult Health
DX: I25.10 Atherosclerotic heart disease of native coronary artery without angina pectoris (principal); I73.9 Peripheral vascular disease, unspecified

== ENCOUNTER 2018-11-26 07:58 | Outpatient (CLI) | payer BC ==
[~2018-11-26] VITALS: Ht 162.6 cm; Wt 59.5 kg
--- NOTE | ~2018-11-26 | HEMODYNAMI ---
PATIENT:GANESH BHATT MEDICAL RECORD: [id number] : 33 LOCATION:[facility] ADMISSION DATE: 11/26/18 Generatedon:11/26/20189:54 Patient name: GANESH BHATT Patient #: [id number] : 1935 Date of study: 11/26/2018 Page: Of Hemodynamic Procedure Report Patient Data Patient Demographics Procedure consent was obtained First Name: GANESH Gender: Male Last Name: MILLER : 1935 Patient #: [id number] Age: 82 year(s) Race: Black SSN: [id number] Additional ID: [id number] Contact details Address: [place] [address] State: [place] City: [place] Zip code: [address] Past Medical History Allergies: No known allergies Admission Admission Data Admission Date: 11/26/2018 Admission Time: 7:58 Admit Source: Other Height (in.): 63.78 BSA: 1.63 (m2) Height (cm.): 162 BMI: 22.48 (kg/m2) Weight (lbs.): 130.07 Weight (kg.): 59 Lab Results Lab Result Date: 11/26/2018 Lab Result Time: 8:25 Biochemistry Name Units Result Min Max BUN mg/dl 10 --(-*--)-- 7 18 Creatinine mg/dl 1.2 --(---*)-- 0.6 1.3 CBC Name Units Result Min Max Hematocrit % 36.7 *-(----)-- 42 54 Hemoglobin g/dl 12.4 *-(----)-- 13.5 17.5 Procedure Procedure Types Cath Procedure Peripheral Cath Diagnostic Procedure Pediatric Urologist Peripheral Procedures Vhfwh-Dzapscg-Hhn-Off Procedure Description Procedure Date Procedure Date: 11/26/2018 Procedure Start Time: 9:44 Procedure End Time: 9:53 Procedure Staff Name Function John Bowens MD Performing Physician Alfonso Wilder RT Monitor Deborah Boswell RT Scrub Jan Flynn RT Scrub Dioni Otto RN Nurse Procedure Data Cath Procedure Fluoroscopy Diagnostic fluoroscopy Total fluoroscopy Time: 1 time: 1 min min Diagnostic fluoroscopy Total fluoroscopy dose: 101 dose: 101 mGy mGy Contrast Material Contrast Material Type Amount (ml) Isovue 300 75 Entry Location Entry Primary Successful Side Size Upsize Upsize Entry Closure Succes sful Closure Location (Fr) 1 (Fr) 2 (Fr) Remarks Device Remarks Femoral Right 5 Fr Exoseal artery Estimated blood loss: 5 ml Diagnostic catheters Device Type Used For End Catheter Placement DIAGNOSTIC UF 5Fr Procedure catheter ([id number]) Procedure Complications No complications Procedure Medications Medication Administration Route Dosage 0.9% NaCl I.V. 100 ml/hr Oxygen etCO2 Nasal cannula 2 l/min Heparin Flush Bag added to field 1 bags (1000units/500ml NS) Lidocaine 2% added to field 20 Versed I.V. 1 mg Fentanyl I.V. 50 mcg Hemodynamics Rest BSA: 1.63 (m2) HGB: 12.4 (g/dl) O2 Consumption: Estimated: 189.88 (ml/min) O2 Co nsumption indexed: Estimated:116.49 (ml/min/m) Heart Rate: 78 (bpm) Snapshots Pre Cath Intra NCS Post Cath Vital Signs Time Heart Resp SPO2 etCO2 NIBP (mmHg) Rhythm Pain Sedation Rate (ipm) (%) (mmHg) Status Level (bpm) 9:33:15 76 17 100 0 159/94(138) NSR 0 (11) 10(A) , No pain 9:37:35 74 19 100 38.2 154/90(109) NSR 0 (11) 10(A) , No pain 9:41:56 74 17 100 0 151/83(104) NSR 0 (11) 10(A) , No pain 9:46:12 75 18 100 0 148/87(113) NSR 0 (11) 10(A) , No pain 9:50:28 77 17 100 0 150/88(105) NSR 0 (11) 9(A) , No pain Medications Time Medication Route Dose Verified Delivered Reason Notes Effe ctiveness by by 9:32:02 0.9% NaCl I.V. 100 Dioni Dioni Per ml/hr Fam Otto physician RN RN 9:32:10 Oxygen etCO2 2 Dioni Dioni for low 02 Nasal l/min Lorigan Lorigan sats cannula RN RN 9:32:22 Heparin Flush added 1 Dioni Dioni used for Bag to bags Lorigan Lorjulius procedure (1000units/500ml field RN RN NS) 9:32:32 Lidocaine 2% added 20ml Dioni Dioni for local to vial Lorigan Lorigan anesthetic field RN RN 9:43:03 Versed I.V. 1 mg Dioni Dioni for Lorigan Lorigan sedation RN RN 9:43:12 Fentanyl I.V. 50 Dioni Dioni for mcg Lorigan Lorigan sedation RN medical imaging tech Log Time Note 9:12:11 Deborah Boswell RT(R) sent for patient. Start room use. 9:16:38 Informed consent obtained and on chart 9:20:17 Lab Result : BUN 10 mg/dl 9:20:17 Lab Result : Creatinine 1.2 mg/dl 9:20:17 Lab Result : Hematocrit 36.7 % 9:20:17 Lab Result : Hemoglobin 12.4 g/dl 9:21:05 Diagnostic Cath Status : Elective 9:21:14 Patient Weight : 130.07 lbs 9:21:17 Patient Height : 63.78 inches 9:21:20 Admit Source: Other 9:22:01 Procedure Status Elective Heart Cath (OP). 9:22:39 Time tracking: Regular hours (M-F 7:00 - 5:00) 9:22:49 Plan of Care:Hemodynamics will remain stable., Cardiac rhythm will remain stable., Comfort level will be maintained., Respiratory function will remain adequate., Patient/ family verbilizes understanding of procedure., Procedure tolerated without complication., Recovers from procedure without complications.. 9:22:56 Patient received from Pre/Post Procedure Room to CCL 1 Alert and oriented. Tansferred to table in Supine position. 9:22:57 Warm blankets applied, and vita hugger turned on for patient comfort. 9:22:58 Correct patient and procedure confirmed by team. 9:22:59 ECG and BP/O2 sat monitors applied to patient. 9:32:02 0.9% NaCl 100 ml/hr I.V. was administered by Dioni Otto RN; Per physician; 9:32:08 Vital chart was started 9:32:09 Baseline sample Acquired. 9:32:10 Oxygen 2 l/min etCO2 Nasal cannula was administered by Dioni Otto RN; for low 02 sats; 9:32:13 Rhythm: sinus rhythm 9:32:16 Full Disclosure recording started 9:32:21 H&P Date Dictated: 11/26/2018 New H&P dictated by physician.. 9:32:22 Heparin Flush Bag (1000units/500ml NS) 1 bags added to field was administered by Dioni Otto RN; used for procedure; 9:32:23 Pre-procedure instructions explained to patient. 9:32:23 Pre-op teaching completed and patient verbalized understanding. 9:32:25 Family in waiting room. 9:32:26 Patient NPO since Midnight. 9:32:32 Lidocaine 2% 20ml vial added to field was administered by Dioni Otto RN; for local anesthetic; 9:32:33 Patient allergic to No known allergies 9:32:38 Is the patient allergic to Iodine/contrast media? No. 9:32:39 Is patient on blood thinner?Yes 9:32:44 ACC The patient was administered the following blood thiners within the last 24 hours: ACCAspirin, ACCPlavix 9:32:46 Patient diabetic? No. 9:32:49 Previous problem with sedation/anesthesia? No ? 9:32:52 Snore? Yes 9:32:53 Sleep apnea? No 9:32:53 Deviated septum? No 9:32:54 Opens mouth fully? Yes 9:32:55 Sticks out tongue? Yes 9:32:56 Airway obstruction? No ? 9:32:59 Dentures? No ? 9:33:04 Pre procedure: right dorsailis pedis pulse 1+ Palpable, but thready & weak; easily obliterated 9:33:07 Pre procedure: left dorsailis pedis pulse Doppler 9:33:09 Patient pain scale 0/10 ?. 9:33:15 IV patent on arrival in left forearm with 0.9% NaCl at [facility]. 9:33:18 Lab results completed and on chart. 9:33:20 Bilateral groins area was prepped with chlora-prep and draped in sterile fashion 9:33:22 Alarms reviewed by R. N. 9:33:23 Sharps counted by scrub and verified by R.N. 9:33:26 ACIST Syringe (49059) opened to sterile field. 9:33:26 Bag Decanter () opened to sterile field. 9:33:27 Medline Cath Pack ([id number]) opened to sterile field. 9:33:29 ACIST Hand Control (25322) opened to sterile field. 9:33:29 ACIST Manifold (81235) opened to sterile field. 9:33:31 Tegaderm 4 x 4 (1626W) opened to sterile field. 9:33:38 EMERALD Guide Wire (757-814) opened to sterile field. 9:33:39 SHEATH 5FR [place] ([id number]) opened to sterile field. 9:41:59 Physician arrived 9:42:00 --------ALL STOP TIME OUT------ 9:42:00 Final Timeout: patient, procedure, and site verified with staff and physician. All members of the team are in agreement. 9:42:02 Bilateral groins site verified by team. 9:42:06 Fire Safety Assessment: A--An alcohol-based skin anteseptic being used preoperatively., C--Open oxygen or nitrous oxide is being used., D--An ESU, laser, or fiber-optic light is being used. 9:42:09 Physical assessment completed. ASA score P 2 - A patient with mild systemic disease as per John Bowens MD. 9:42:14 2) 60-89 Mildly reduced kidney function, and other findings (as for stage 1) point to kidney disease. 9:42:32 Maximum allowable contrast dose (3.7 X eGFR X 0.75)205 ml. 9:42:36 Sedation plan: IV Moderate Sedation Medication:Versed, Fentanyl 9:43:03 Versed 1 mg I.V. was administered by Dioni Otto RN; for sedation; 9:43:12 Fentanyl 50 mcg I.V. was administered by Dioni Otto RN; for sedation; 9:43:13 Zero performed for pressure channel P1 9:44:55 Procedure started. 9:44:58 Local anesthetic to right femoral artery with Lidocaine 2% by John Bowens MD.INITIAL ACCESS ONLY 9:45:39 A 5 Fr sheath was inserted into the Right Femoral artery 9:46:31 A DIAGNOSTIC UF 5Fr catheter ([id number]) was advanced over the wire and used for Procedure. 9:47:01 Right leg runoff performed. 9:49:17 Left leg runoff performed. 9:49:21 Catheter removed. 9:49:27 EXOSEAL 5Fr (EX500) opened to sterile field. 9:49:45 Sheath removed intact; hemostasis achieved with Exoseal to the Right Femoral artery. 9:49:47 Procedure ended.(Physican Out) 9:52:09 Fluoroscopy time 01.00 minutes. 9:52:26 Fluoroscopy dose: 101 mGy 9:52:26 Flurop Dose total: 101 9:52:33 Dose Area Product 7935 mGy/cm. 9:52:37 Contrast amount:Isovue 300 75ml. 9:52:38 Maximum allowable dose exceeded? No. 9:52:40 Sharps counted by scrub and verified by R.N. 9:52:41 Insertion/operative site no bleeding no hematoma. 9:52:43 Post-op/insertion site Right Femoral artery dressed using a 4 x 4 and Tegaderm. 9:52:46 Post right femoral artery:stable, soft, clean and dry 9:52:48 Post Procedure Pulses reassessed and unchanged 9:52:49 Post-procedure physical assessment completed. ASA score P 2 - A patient with mild systemic disease as per John Bowens MD. 9:52:51 Post procedure rhythm: unchanged. 9:52:54 Estimated blood loss: 5 ml 9:53:01 Post procedure instruction explained to patient.Patient verbalizes understanding. 9:53:01 Patient needs reinforcement of post procedure teaching. 9:53:36 Procedure and supply charges have been captured, reviewed, submitted and are correct. 9:53:41 Procedure Complication : No complications 9:53:43 Vital chart was stopped 9:53:43 See physician's report for complete and final results. 9:53:46 Report given to Pre/Post Procedure Room. 9:53:49 Patient transfered to Pre/Post Procedure Room with Stretcher. 9:53:50 Procedure ended. 9:53:50 Full Disclosure recording stopped 9:53:58 ACC-PCI Only Patient was given prescriptions, or instructed by John Bowens MD to start/continue the following medications upon discharge: Aspirin, Plavix 9:54:00 End room use (Document Last) Device Usage Item Name Manufacture Quantity Catalog Hospital Part Current Minimal L ot# / Number Charge Number Stock Stock Serial# Code ACIST Acist 1 21333 [id number] [id number] 20 Syringe Medical (48989) Systems Inc Bag Microtek 1 2001S 981344 75969 294115 5 Decanter Medical Inc. (2001S) Medline Medline 1 [id number] 422674 57276 082599 5 Cath Pack ([id number]) ACIST Hand Acist 1 51962 766130 076117 019348 5 Control Medical (04512) Systems Inc ACIST Acist 1 26942 305827 296954 768652 5 Manifold Medical (08786) Systems Inc Tegaderm 4 3M 1 1626W 535927 585982 069730 5 x 4 (1626W) EMERALD Cardinal 1 502455 094560 319469 049705 5 Guide Wire Health (502-481) SHEATH 5FR Terumo 1 OMC610 725073 700711 692357 5 [place] (OQU014) EXOSEAL 5Fr Cardinal 1 EX500 280350 500803 397292 10 (EX500) Health DIAGNOSTIC Cardinal 1 [id number] 182310 248819 028125 10 UF 5Fr Health catheter (197844X2) Signature Audit [place] Stage Time Signature Unsigned Intra-Procedure 11/26/2018 Alfonso Wilder 9:54:43 AM RT(R) Signatures Performing Physician : Signature : John Bowens MD Date : Time : Monitor : Alfonso Wilder RT Signature : Date : Time : Nurse : Dioni Otto Signature : RN Date : Time : [facility] [address] [place] [address]
[2018-11-26] MEDS ORDERED: PRINIVIL20 MG PO (08:24)
[2018-11-26 08:37] VITALS: BP 162/84; Ht 162.6 cm; Wt 59.5 kg
[2018-11-26 08:42] LABS: BASOPHILS 0.2 % (0-2); EOSINOPHILS 1.1 % (0-7); HEMATOCRIT 36.7 % (42.0-54.0); HEMOGLOBIN 12.4 g/dL (13.5-17.5); LYMPHOCYTES 29.2 % (15-50); MCH 27.6 pg (26.0-34.0); MCHC 33.8 g/dL (31.0-37.0); MCV 81.7 fL (80.0-100.0); MEAN PLATELET VOLUME 10.3 fL (7.4-10.4); MONOCYTES 6.5 % (2-11); PLATELET COUNT 182 10x3/uL (130-400); RBC 4.49 10x6/uL (4.20-6.10); RDW 12.8 % (11.5-14.5); WBC 4.6 10x3/uL (4.8-10.8)
[2018-11-26 08:50] LABS: ANION GAP 9.9 mmol/L (8-16); CALCIUM 9.4 mg/dL (8.5-10.1); CARBON DIOXIDE 30.1 mmol/L (21.0-32.0); CREATININE - SERUM 1.2 mg/dL (0.6-1.3)
--- NOTE | 2018-11-26 10:04 | NUR ---
PT ARRIVED BY STRETCHER. PLACED ON MONITORS. ASSESSMENT COMPLETED. NO FAMILY AT BEDSIDE OR IN THE WAITING ROOM AT THIS TIME. CALL LIGHT WITHIN REACH. PT IN SUPINE POSITION.
--- NOTE | 2018-11-26 10:20 | NUR ---
RIGHT GROIN DRESSING C/D/I. NO S/S OF HEMATOMA NOTED. CALL LIGHT WITHIN REACH. FAMILY AT BEDSIDE. NO OTHER NEEDS AT THIS TIME.
--- NOTE | 2018-11-26 10:50 | NUR ---
RIGHT GROIN DRESSING C/D/I. NO S/S OF HEMATOMA NOTED. CALL LIGHT WITHIN REACH. FAMILY AT BEDSIDE. NO NEEDS AT THIS TIME.
--- NOTE | 2018-11-26 11:00 | NUR ---
HEAD OF BED INC TO 30 DEGREES. TOLERATED WELL. RIGHT GROIN DRESSING C/D/I. NO S/S OF HEMATOMA NOTED. CALL LIGHT WITHIN REACH. FAMILY AT BEDSIDE. SET UP WITH SANDWICH TRAY AND DRINK. NO OTHER NEEDS AT THIS TIME. DENIES NAUSEA/PAIN
--- NOTE | 2018-11-26 11:20 | NUR ---
DR. CHAPMAN ROUNDED AND SPOKE WITH PT AND PT'S FAMILY. THEY VOICED UNDERSTANDING. PT ATE SANDWICH. DENIES NAUSEA. RIGHT GROIN DRESSING C/D/I. NO S/S OF HEMATOMA NOTED.
--- NOTE | 2018-11-26 11:30 | NUR ---
LEFT ARM PIV D/C'D WITH CATH TIP INTACT. PT TOLERATED WELL. RIGHT GROIN DRESSING C/D/I. NO S/S OF HEMATOMA NOTED. PT INSTRUCTED TO GET UP AND DRESSED. FAMILY AT BEDSIDE TO ASSIST.
--- NOTE | 2018-11-26 11:40 | NUR ---
DISCUSSED DISCHARGE INSTRUCTIONS WITH PT AND PT'S FAMILY. THEY VOICED UNDERSTANDING.
--- NOTE | 2018-11-26 11:49 | NUR ---
PT AMBULATED TO VEHICLE. REFUSED WHEELCHAIR. NO S/S OF DISTRESS NOTED. ALL BELONGINGS AND DISCHARGE PAPERWORK IN HAND.
--- NOTE | 2018-12-04 14:31 | OP ---
PATIENT NAME: GANESH BHATT MEDICAL RECORD: [id number] :33 LOCATION:D.CAT ADMISSION DATE: SURGEON: PHILLIP CHAPMAN MD DATE OF OPERATION: 11/26/2018 PROCEDURES: 1. Aortofemoral runoff. 2. Abdominal aortography. INDICATIONS: Claudication and peripheral vascular disease. PROCEDURE IN DETAIL: After informed consent was obtained and after a detailed explanation of risks, benefits as well as alternative therapies, the patient elected to proceed with angiogram and aortofemoral runoff. FINDINGS: Abdominal aortography was performed. The catheter was pulled down for aortofemoral runoff. Abdominal aortography reveals no significant abdominal aortic disease, no dissection or aneurysm formation. RIGHT LEG: A. Iliac: The common internal and external iliacs have mild irregularities, no flow-limiting stenosis. B. Femoral system: The common, superficial, and deep femoral have mild irregularities, no flow-limiting stenosis. C. Popliteal and infrapopliteal vessels: The popliteal is widely patent. Anterior tibial was totally occluded. The peroneal has an area of total occlusion in the proximal aspect for approximately 30 mm. Posterior tibial is patent giving runoff to the foot. After this area of total occlusion of the peroneal, it does fill via collaterals off the posterior tibial and runoff to the foot is provided through the peroneal as well. LEFT LEG: A. Iliac: The common iliac has what appears to be an auto-dissection proximally; however, the stenosis is no more than 20% to 30%. The remainder of the iliac system has only mild irregularities, but no flow-limiting stenosis. B. Femoral system: The common, superficial, and deep femoral have mild irregularities, but no flow-limiting stenosis. C. Popliteal and infrapopliteal vessels are with 2-vessel runoff through the posterior tibial and peroneal. OVERALL IMPRESSION: Infrapopliteal disease bilaterally, not ideal for transcatheter revascularization. Continue medical management of the peripheral vascular disease and peripheral risk factors. TRANSINT:[id number] Voice Confirmation ID: [id number] DOCUMENT ID: [id number] PHILLIP CHAPMAN MD at 1431 CC: [id number] DICTATION DATE: 11/26/18 0955 INSPECTOR ELEVATORS: 11/26/18 1014 DEP CLI 11/26/18 [facility] [address] [place] [address]
--- NOTE | 2018-12-04 14:31 | HP ---
PATIENT: GANESH BHATT MEDICAL RECORD: [id number] ACCOUNT: [id number] LOCATION:[facility] : 33 ADMISSION DATE: 11/26/18 PCP: DANIS SCOTT HISTORY AND PHYSICAL EXAMINATION DIAGNOSES: 1. Claudication. 2. Peripheral vascular disease. 3. Coronary artery disease. 4. Hypertension. 5. Hyperlipidemia. HISTORY OF PRESENT ILLNESS: Mr. Bhatt is followed by us for coronary artery disease. He has not had a history of peripheral vascular disease. With his primary physician, he complained of leg pain, left greater than right. CT angio was performed. It suggested he has iliac as well as infrapopliteal disease that is moderate to severe on the left leg. Right leg had infrapopliteal disease that was moderate to severe. His left leg is definitely worse than his right leg. PHYSICAL EXAMINATION: CONSTITUTIONAL/GENERAL APPEARANCE: Well nourished, well developed, appears stated age. EYES: Lids and conjunctivae noninjected. No discharge. No pallor. ENT: Lips within normal limit. No cyanosis. No pallor. NECK: Carotid arteries, bilateral normal upstroke. No bruits. No thrills. No jugular venous pressure or distention. CERVICAL LYMPH NODES: Nontender. Nonenlarged. THYROID: Not enlarged. No nodules. CARDIOVASCULAR: Precordial exam, nondisplaced. No heaves or pericardial thrills. Rate and rhythm, regular. Heart sounds, normal S1, normal S2. No S3, no gallop, no rub. Systolic murmur, not heard. Diastolic murmur, not heard. RESPIRATORY: Respiratory effort, unlabored. Normal curvature. No thoracic deformity. No chest wall tenderness. Percussion, resonant. Auscultation, clear. No wheezes, no rales, no rhonchi. ABDOMEN: Soft, nondistended, nontender. No abdominal pain, no vomiting and normal appetite. MUSCULOSKELETAL: No joint tenderness, normal gait, normal tone. SKIN: Warm and dry. OVERALL IMPRESSION: Claudication left leg greater than right with CT angio suggestive of iliac and infrapopliteal disease that is possibly amenable to transcatheter revascularization. We will proceed with aortofemoral runoff in hopes of transcatheter revascularization. TRANSINT:[id number] Voice Confirmation ID: [id number] DOCUMENT ID: [id number] HISTORY AND PHYSICAL [id number] GANESH BHATT JEFFREY MD at 1431 CC: [id number] DICTATION DATE: 11/26/1841 FARM DEMONSTRATOR: 11/26/18 1005 DEP CLI 11/26/18 [facility] [id number] [place] [address]
== END 2018-11-26 11:49 | disposition home or self-care (01) ==
LOC: D.CATH 07:58
PROVIDERS: ATTEND Internal Medicine Interventional Cardiology
DX: I70.213 Atherosclerosis of native arteries of extremities with intermittent claudication, bilateral legs (principal); Z01.812 Encounter for preprocedural laboratory examination

== ENCOUNTER → 2018-12-19 10:30 | Outpatient (CLI) | payer BC ==
[2018-11-26 08:37] VITALS: BMI 22.5
[~2018-12-19 10:30] MED LIST changes: +PRINIVIL20 MG PO
== END | disposition home or self-care (01) ==
LOC: D.MRI 10:30
PROVIDERS: ATTEND Internal Medicine Cardiovascular Disease
DX: I73.9 Peripheral vascular disease, unspecified (principal); M54.5 Low back pain

== ENCOUNTER 2020-09-09 06:51 | Day surgery (SDC) | payer BC, MEDICARE ==
[2020-09-06 15:17] LABS: BASOPHILS 0.6 % (0-2); EOSINOPHILS 0.8 % (0-7); HEMATOCRIT 38.1 % (42.0-54.0); HEMOGLOBIN 12.3 g/dL (13.5-17.5); MCH 26.8 pg (26.0-34.0); MCHC 32.3 g/dL (31.0-37.0); MCV 83.2 fL (80.0-100.0); MEAN PLATELET VOLUME 7.8 fL (7.4-10.4); MONOCYTES 8.5 % (2-11); NEUTROPHILS 66.1 % (40-80); PLATELET COUNT 201 10x3/uL (130-400); RBC 4.58 10x6/uL (4.20-6.10); RDW 13.9 % (11.5-14.5); WBC 5.9 10x3/uL (4.8-10.8)
[2020-09-06 15:24] LABS: CALCIUM 9.3 mg/dL (8.5-10.1); CARBON DIOXIDE 30.3 mmol/L (21.0-32.0); CREATININE - SERUM 1.1 mg/dL (0.6-1.3); POTASSIUM - SERUM 4.3 mmol/L (3.5-5.1)
[2020-09-06 15:37] LABS: APTT 26.1 SECONDS (22.8-39.4); INR 1.13 (0.85-1.17); PROTIME 13.5 SECONDS (11.6-15.0)
[~2020-09-09] VITALS: Ht 162.6 cm; Wt 59.4 kg
[~2020-09-09 06:51] MED LIST changes: +CYCLOBENZAPRINE5 MG PO; +DIPHEDRYL25 MG PO; +FEXOFENADINE H180 MG PO; +FOLIC ACID PO; +IBUPROFEN800 MG PO; +LIPITOR20 MG PO; +LISINOPRIL-HCT1 EAC7 PO; +RANITIDINE PO; +VITAMIN D3 PO
[2020-09-09 07:39] VITALS: BP 135/68; Ht 162.6 cm; Wt 59.4 kg
[2020-09-09] MEDS ORDERED: HYDROCODON-ACE1 EA10 PO (12:49)
[2020-09-09] MEDS ORDERED: MEDROL DOSE PACK4 MG PO (12:49)
--- NOTE | 2020-09-09 13:20 | NUR ---
DISCHARGE INSTRUCTIONS REVIEWED WITH PT AND SPOUSE. COPY PROVIDED AND BOTH VOICED UNDERSTANDING. SPOUSE IN POSSESSION OF PT'S NARCOTIC PAIN RX-GIVEN TO HER BY DR HANSON. IV THEN DC'D X2 WITH CATH TIP INTACT TO BOTH. PT THEN ASSISTED TO DANGLE, THEN AMBULATE SOME IN ROOM WITHOUT C/O NUMBNESS OR TINGLING. SPOUSE THE ASSISTING PT TO GET DRESSED.
--- NOTE | 2020-09-09 14:00 | NUR ---
DISCHARGED VIA W/C, ACCOMPANIED BY CRISTIAN, TO [facility] WITH SPOUSE DRIVING. PT'S SPOUSE IN POSSESSION OF ALL BELONGINGS. PT WITHOUT C/O VOICED.
--- NOTE | 2020-09-13 09:48 | OP ---
PATIENT NAME: GANESH BAHTT MEDICAL RECORD: [id number] :33 LOCATION:D.OPS ADMISSION DATE: SURGEON: MARK GASCA MD DATE OF OPERATION: 09/09/2020 DATE OF SERVICE: 09/09/2020 PREOPERATIVE DIAGNOSES: Lumbar spinal stenosis and foraminal stenosis at L4-L5 on the right and left with bilateral foraminal stenosis. PROCEDURE: Right L4-L5 lumbar laminectomy, medial facetectomy and foraminotomy with METRx retractor, sublaminar decompression at L4-L5 on the left, microscopic illumination. SURGEON: Mark Gasca MD DESCRIPTION OF PROCEDURE: After induction of general endotracheal anesthesia, the patient was rolled prone on a Pancho frame. The lumbar spine was prepped and draped in the usual sterile fashion. Fluoroscopic x-ray and spinal needle localized the L4-L5 interspace on the right side. A stab incision was created with a #11 blade. Series of dilators was used and advanced the METRx retractor to the L4-L5 interspace on the right side. A microscope and Midas Vin were used to perform a laminectomy, medial facetectomy, and foraminotomy at L4-L5 on the right. Hypertrophied ligamentum flavum was removed with Cloward rongeurs. Spinous process of L4 was undermined with a Midas Vin drill. The hypertrophied ligamentum flavum was removed from the central canal as well as the foramen at L4-L5 on the left. Following this, both L4 and L5 nerve roots were decompressed as well. Meticulous hemostasis was maintained throughout the wound. Wound was irrigated with copious amounts of Ancef irrigant solution. The retractor was removed. The fascia was reapproximated with interrupted 2-0 Vicryl suture. The subdermal layer was closed with interrupted 3-0 Vicryl sutures. Skin was closed with melissa. A sterile dressing was applied to the wound. The patient was awakened in good condition and taken to recovery. All counts were reported as correct. Estimated blood loss was minimal. TRANSINT:[id number] Voice Confirmation ID: [id number] DOCUMENT ID: [id number] MARK GASCA MD at 0948 CC: [id number] DICTATION DATE: 09/13/20927 [employer] PRO[employer] DIRECTOR: 09/13/2039 [facility] 09/09/20 [facility] [address] [place] [address]
== END 2020-09-09 14:00 | disposition home or self-care (01) ==
LOC: D.OPS 06:51
PROVIDERS: Anesthesiology; ATTEND Neurological Surgery
DX: M48.061 Spinal stenosis, lumbar region without neurogenic claudication (principal); M54.16 Radiculopathy, lumbar region